=== PATIENT | male | born 1950 | race Caucasian/White ===

== ENCOUNTER → 2018-09-25 12:51 | Outpatient (CLI) | payer OTHER, SELFPAY ==
--- NOTE | 2018-09-25 | DI.MRI.S_ITS ---
PROCEDURE: MR LUMBAR SPINE WO/W CON INDICATIONS: Low back pain TECHNIQUE: Noncontrast sagittal T1 spin echo and T2 fast spin echo, sagittal STIR, axial T1 and T2 fast spin echo through the lumbar spine. In cases with scoliosis, additional coronal T2 fast spin echo may be performed. After the administration of contrast, sagittal and axial T1 spin echo with fat saturation through the lumbar spine. COMPARISON: [facility], , L-SPINE 2-3 VIEWS, 02/22/2012, 9:42. FINDINGS: Image quality: Excellent. Alignment and curvature: Mild levoconvex scoliotic curvature is noted. Marrow: Marrow is of normal overall signal. There is a stable central compression deformity seen at L4, with approximately 40% loss of height centrally. This is not significantly changed compared to 2012. There is also a mild compression deformity seen involving the superior endplate of L2, with 15% loss of height centrally. Abnormal bone marrow edema can be seen throughout this vertebral body, although most prominent superiorly. There is associated enhancement seen within this vertebral body, although most prominent superiorly, which is consistent with a healing response. This is new compared to the 2012 plain film examination. There is 3 mm posterior displacement of fracture fragments seen. No suspicious marrow enhancement. Spinal cord: Conus medullaris terminates at the L1 level. Visualized spinal cord demonstrates normal signal, without suspicious enhancement. Paraspinous soft tissues: No paravertebral masses or abnormal enhancement. T12-L1: Normal appearance. L1-L2: The disc height and disc signal are relatively well-preserved and mild to moderate disc bulge is seen. There is at least moderate bilateral neural foraminal narrowing seen at this level. Moderate central canal narrowing is seen, as on series 5. L2-L3: The disc height and disc signal are relatively well-preserved. Mild to moderate disc bulge is seen. [id number] bilateral neural foraminal narrowing is seen. Minimal central canal narrowing is seen. L3-L4: The disc height is well-preserved. Loss of disc signal is seen at this level. Moderate generalized disc bulge is seen. Mild facet joint hypertrophy is seen. There is moderate left-sided and mild to moderate right-sided neural foraminal narrowing seen. There is at least moderate central canal narrowing seen, as on series 5 image 23. L4-L5: The disc height is well-preserved. Loss of disc signal is seen at this level. Moderate disc bulge is seen, which is eccentric to the left. Moderate to prominent facet hypertrophy is seen, with associated moderate hypertrophy of the ligamentum flavum. There is moderate to severe bilateral neural foraminal narrowing seen, right worse than left. There is a degree of compression seen upon the exiting L4 nerve roots. Moderate to severe central canal narrowing is seen, as on series 5 image 27. L5-S1: The disc height is well-preserved. Loss of disc signal is seen at this level. Moderate disc bulge is seen, which is eccentric to the left. There is mild to moderate facet hypertrophy seen. There is moderate right-sided and moderate to severe left-sided neural foraminal narrowing seen. There is a degree of compression seen upon the exiting left L5 nerve root. Moderate central canal narrowing is seen. IMPRESSION: There is a subacute compression deformity seen at L2, with 3 mm of posterior displacement of fracture fragments. Stable L4 central compression deformity. Multiple levels of lumbar spine degenerative change are seen, including a degree of nerve compression upon the exiting L4 nerve roots. Compression can also be seen upon the exiting left L5 nerve root. Moderate to severe central canal narrowing at L4-L5. Dictated by: Maxi Mancuso M.D. on 09/25/2018 at 14:12 Approved by: Maxi Mancuso M.D. on 09/25/2018 at 14:20
== END ==
PROVIDERS: Visit Provider Internal Medicine
DX: M54.5 Low back pain (principal); M47.816 Spondylosis without myelopathy or radiculopathy, lumbar region; M47.817 Spondylosis without myelopathy or radiculopathy, lumbosacral region; M48.061 Spinal stenosis, lumbar region without neurogenic claudication; M48.07 Spinal stenosis, lumbosacral region
CPT/HCPCS: 72158; A9579

== ENCOUNTER → 2019-06-04 08:49 | Outpatient (CLI) | payer MEDICARE, BC, SELFPAY ==
[2019-06-04 08:59] LABS: Bacteria Urine None Seen; WBC Urine None Seen (0-5/HPF)
[2019-06-04 09:22] LABS: Add Manual Diff / Slide Review NO; Basophils Absolute Auto 100 /uL (0-100); Basophils Percent Auto 0.8 % (0-2); Eosinophils Absolute Auto 300 /uL (0-450); Eosinophils Percent Auto 4.2 % (2-4); Hematocrit 40.5 % (41-53); Hemoglobin 13.6 g/dL (13.5-17.5); Lymphocytes Absolute Auto 2400 /uL (1100-4500); Lymphocytes Percent Auto 31.9 % (25-40); Mean Corpuscular HGB Conc 33.5 % (30-36); Mean Corpuscular Hemoglobin 28.9 PG (26-34); Mean Corpuscular Volume 86.2 fL (80-100); Monocytes Absolute Auto 800 /uL (0-900); Monocytes Percent Auto 10.6 % (3-14); Neutrophils Absolute Auto 4000 /uL (1500-7000); Neutrophils Percent Auto 52.5 % (50-75); Platelet Count 254 X10^3/uL (150-400); Red Cell Distribution Width 13.8 % (11.6-14.8); White Blood Cell Count 7.7 X10^3/uL (4.5-11.0)
[2019-06-04 09:26] LABS: Appearance Urine UA CLEAR; Bilirubin Urine UA NEGATIVE (NEGATIVE); Color Urine UA YELLOW; Glucose Urine UA NEGATIVE (Negative); Ketones Urine UA NEGATIVE (NEGATIVE); Leukocyte Esterase Urine UA NEGATIVE (NEGATIVE); Nitrite Urine UA NEGATIVE (Negative); Occult Blood Urine UA TRACE-LYSED (Negative); Protein Urine UA NEGATIVE (Negative); Specific Gravity Urine UA <=1.005 (1.000-1.035); Urobilinogen Urine UA 0.2 E.U./dL (0.2); pH Urine UA 6.5 (4.5-8.0)
[2019-06-04 09:32] LABS: Hemoglobin A1C% w Est Avg Glu 6.4 % (4.0-6.0)
[2019-06-04 09:39] LABS: Alanine Aminotransferase 21 IU/L (<50); Albumin 4.7 g/dL (3.5-5.0); Albumin Globulin Ratio 1.4 (1.0-2.8); Alkaline Phosphatase 84 U/L (38-126); Aspartate Aminotransferase 23 IU/L (17-59); BUN Creatinine Ratio 16.7 (6-22); Bilirubin Total 0.5 mg/dL (0.2-1.3); Blood Urea Nitrogen 15 mg/dL (9-20); Calcium 9.8 mg/dL (8.4-10.2); Carbon Dioxide 27 mmol/L (22-32); Chloride 101 mmol/L (98-107); Cholesterol 194 mg/dL (140-199); Estimated Glomerular Filt Rate > 60.0 mL/min (>60); Globulin 3.3 g/dL (1.7-4.1); Glucose 101 mg/dL (80-110); HDL Cholesterol 52 mg/dL (40-60); HEMOLYSIS < 15 (0-50); LDL Cholesterol Calculated 120 mg/dL (<100); Potassium 4.3 mmol/L (3.4-5.1); Sodium 138 mmol/L (137-145); Triglycerides 110 mg/dL (35-150)
[2019-06-04 09:41] LABS: Culture Indicated Urine Cult Not Indicated; RBC Urine 1-5/HPF (0-5/HPF)
[2019-06-07 15:18] LABS: PSA, Total 0.5 ng/mL (< 4.1)
== END ==
PROVIDERS: PCP Internal Medicine; Visit Provider Internal Medicine
DX: E11.9 Type 2 diabetes mellitus without complications (principal); E78.5 Hyperlipidemia, unspecified; R31.9 Hematuria, unspecified; I10 Essential (primary) hypertension
CPT/HCPCS: 36415; 80053; 80061; 81001; 83036; 84153; 84154; 85025

== ENCOUNTER → 2020-04-05 10:31 | Outpatient (CLI) | payer MEDICARE, BC, SELFPAY ==
[2020-04-05 12:25] LABS: Add Manual Diff / Slide Review NO; Basophils Absolute Auto 0 /uL (0-100); Basophils Percent Auto 0.7 % (0-2); Eosinophils Absolute Auto 400 /uL (0-450); Eosinophils Percent Auto 5.4 % (2-4); Hematocrit 37.7 % (41-53); Hemoglobin 12.5 g/dL (13.5-17.5); Lymphocytes Absolute Auto 2000 /uL (1100-4500); Mean Corpuscular HGB Conc 33.1 % (30-36); Mean Corpuscular Hemoglobin 28.5 PG (26-34); Mean Corpuscular Volume 86.3 fL (80-100); Monocytes Absolute Auto 700 /uL (0-900); Monocytes Percent Auto 10.2 % (3-14); Neutrophils Absolute Auto 3800 /uL (1500-7000); Neutrophils Percent Auto 54.7 % (50-75); Platelet Count 222 X10^3/uL (150-400); Red Blood Cell Count 4.37 X10^6/uL (4.5-5.9); Red Cell Distribution Width 14.1 % (11.6-14.8); White Blood Cell Count 6.9 X10^3/uL (4.5-11.0)
[2020-04-05 12:42] LABS: Alanine Aminotransferase 20 IU/L (<50); Albumin 4.4 g/dL (3.5-5.0); Albumin Globulin Ratio 1.3 (1.0-2.8); Alkaline Phosphatase 91 U/L (38-126); Aspartate Aminotransferase 21 IU/L (17-59); BUN Creatinine Ratio 34.7 (6-22); Bilirubin Total 0.5 mg/dL (0.2-1.3); Blood Urea Nitrogen 26 mg/dL (9-20); Calcium 9.3 mg/dL (8.4-10.2); Carbon Dioxide 28 mmol/L (22-32); Chloride 104 mmol/L (98-107); Cholesterol 165 mg/dL (140-199); Estimated Glomerular Filt Rate > 60.0 mL/min (>60); Globulin 3.3 g/dL (1.7-4.1); Glucose 101 mg/dL (80-110); HDL Cholesterol 53 mg/dL (40-60); HEMOLYSIS < 15 (0-50); LDL Cholesterol Calculated 100 mg/dL (<100); Potassium 4.4 mmol/L (3.4-5.1); Sodium 137 mmol/L (137-145); Total Protein 7.7 g/dL (6.3-8.2); Triglycerides 62 mg/dL (35-150)
[2020-04-05 13:11] LABS: Prostate Specific Antigen Scrn 0.586 ng/mL (0.1-4.0)
[2020-04-05 15:34] LABS: Creatinine Urine Random 82.3 mg/dL
[2020-04-05 15:37] LABS: Microalbumi Creatinin Ratio Ur 87.4 ug/mg CR (<30); Microalbumin Urine Random 7.2 mg/dL (0-1.6)
== END ==
PROVIDERS: PCP Internal Medicine; Referring Provider Internal Medicine; Visit Provider Internal Medicine
DX: E78.2 Mixed hyperlipidemia (principal); E11.9 Type 2 diabetes mellitus without complications; I10 Essential (primary) hypertension; M15.0 Primary generalized (osteo)arthritis; Z12.5 Encounter for screening for malignant neoplasm of prostate
CPT/HCPCS: 36415; 80053; 80061; 82043; 82570; 85025; G0103

== ENCOUNTER → 2020-11-02 12:53 | Outpatient (CLI) | payer MEDICARE, OTHER, SELFPAY ==
--- NOTE | 2020-11-02 | DI.MRI.S_ITS ---
PROCEDURE: MR LUMBAR SPINE WO CON INDICATIONS: Spinal stenosis, lumbar region without neurogenic TECHNIQUE: Noncontrast sagittal T1 spin echo and T2 fast echo, coronal T2, sagittal STIR, axial T1 and T2 fast spin echo through the lumbar spine. In cases with scoliosis, additional coronal T2 fast spin echo may be performed. COMPARISON: [facility], , MR LUMBAR SPINE WO/W CON, 09/25/2018, 13:01. [facility] [place], CR, XR LUMBAR SPINE 2 OR 3 VIEWS, 10/30/2018, 15:00. FINDINGS: Image quality: Excellent. Alignment and Curvature: 5 lumbar type vertebral bodies are present by plain film. Loss of normal lumbar lordosis is present. Mild grade 1 anterolisthesis of L4 on L5. Mild grade 1 retrolisthesis of L5 on S1. Bone Marrow: Marrow is of normal overall signal. No acute vertebral body compression fractures. Moderate chronic wedging of L1. Moderate chronic wedging of L4. Moderate reactive signal within the endplates adjacent to the L1-L2 and L3-L4 intervertebral discs. Mild reactive signal within the endplates adjacent to the T10-T11 and T11-T12, T12-L1, L4-L5, and L5-S1 intervertebral discs. Spinal Cord: Conus medullaris terminates at the lower L1 level. Visualized cord demonstrates normal signal and size. Paraspinous Soft Tissues: No paravertebral masses. T12-L1: Mild disc height loss and desiccation. Mild facet and ligamentum flavum hypertrophy. No significant canal, or foraminal stenosis. No change. L1-L2: Moderate disc desiccation. Mild disc height loss and diffuse disc bulge. Mild facet and ligamentum flavum hypertrophy. Mild epidural lipomatosis. Mild retropulsion at the superior L2 level. There is increased, moderate to severe canal stenosis. There is increased, moderate right and mild left foraminal stenosis. L2-L3: Mild disc desiccation and diffuse disc bulge. Mild facet and ligamentum flavum hypertrophy. Mild epidural lipomatosis. Mild canal stenosis. Mild bilateral foraminal stenosis. No significant change. L3-L4: Moderate disc desiccation. Mild disc height loss and diffuse disc bulge. Mild facet and ligamentum flavum hypertrophy. Mild epidural lipomatosis. Moderate canal stenosis. Moderate bilateral foraminal stenosis. No significant change. L4-L5: Mild disc height loss. Moderate disc desiccation. Mild diffuse disc bulge. Moderate facet and ligamentum flavum hypertrophy. Increased, severe canal stenosis. Increased, severe left and no change in moderate to severe right foraminal stenosis. Left greater than right L4 nerve root compression. L5-S1: Mild disc height loss. Moderate disc desiccation. Mild diffuse disc bulge. Mild facet and ligamentum flavum hypertrophy. Moderate canal stenosis. Moderate right and moderate to severe left foraminal stenosis. Mild left L5 nerve root compression. No significant change. IMPRESSION: 1. Multilevel degenerative disc and facet disease, as well as ligamentum flavum hypertrophy and epidural lipomatosis. 2. Multilevel canal stenoses, worst at L4-L5, where there is increased, severe canal stenosis. There is increased, moderate to severe L1-L2 canal stenosis. 3. Multilevel foraminal stenoses, worst at L4-L5 and L5-S1 where there is associated intraforaminal nerve root compression. Recommend correlation with clinical symptoms to ascertain relevance of these findings. Dictated by: Dimitry Williamson M.D. on 11/02/2020 at 14:11 Approved by: Dimitry Williamson M.D. on 11/02/2020 at 14:16
== END ==
PROVIDERS: PCP Internal Medicine; Referring Provider Internal Medicine; Visit Provider Internal Medicine
DX: M48.061 Spinal stenosis, lumbar region without neurogenic claudication (principal); M51.36 Other intervertebral disc degeneration, lumbar region
CPT/HCPCS: 72148

== ENCOUNTER → 2022-07-06 13:26 | Outpatient (CLI) | payer MEDICARE, SELFPAY ==
[2022-07-06 19:22] LABS: HEMOLYSIS < 15 (0-50); Iron 19 ug/dL (49-181)
[2022-07-06 19:24] LABS: Blood Urea Nitrogen 18 mg/dL (9-20); Calcium 9.3 mg/dL (8.4-10.2); Carbon Dioxide 22 mmol/L (22-32); Chloride 102 mmol/L (98-107); Cholesterol 165 mg/dL (140-199); Estimated Glomerular Filt Rate > 60 mL/min (>60); Glucose 50 mg/dL (80-110); HDL Cholesterol 45 mg/dL (40-60); HEMOLYSIS < 15 (0-50); LDL Cholesterol Calculated 102 mg/dL (<100); Potassium 4.6 mmol/L (3.4-5.1); Sodium 138 mmol/L (137-145); Triglycerides 92 mg/dL (35-150)
[2022-07-06 19:26] LABS: Add Manual Diff / Slide Review NO; Basophils Absolute Auto 0 /uL (0-100); Basophils Percent Auto 0.2 % (0-2); Eosinophils Absolute Auto 400 /uL (0-450); Eosinophils Percent Auto 5.1 % (2-4); Hemoglobin 9.5 g/dL (13.5-17.5); Lymphocytes Absolute Auto 2100 /uL (1100-4500); Lymphocytes Percent Auto 28.4 % (25-40); Mean Corpuscular HGB Conc 31.7 % (30-36); Mean Corpuscular Hemoglobin 22.7 PG (26-34); Mean Corpuscular Volume 71.3 fL (80-100); Monocytes Absolute Auto 800 /uL (0-900); Neutrophils Absolute Auto 4000 /uL (1500-7000); Neutrophils Percent Auto 55.3 % (50-75); Platelet Count 246 X10^3/uL (150-400); Red Blood Cell Count 4.21 X10^6/uL (4.5-5.9); Red Cell Distribution Width 18.6 % (11.6-14.8); White Blood Cell Count 7.2 X10^3/uL (4.5-11.0)
[2022-07-06 19:33] LABS: Hemoglobin A1C% w Est Avg Glu 6.5 % (4.0-6.0)
[2022-07-06 19:37] LABS: Percent Iron Saturation 5 % (20-50); Total Iron Binding Capacity 386 ug/dL (261-462); Transferrin 276 mg/dL (206-381)
[2022-07-06 19:56] LABS: Prostate Specific Antigen Scrn 0.698 ng/mL (0.1-4.0)
[2022-07-06 20:17] LABS: Vitamin B12 358 pg/mL (239-931)
== END ==
PROVIDERS: PCP Family Medicine; Visit Provider Family Medicine
DX: E11.9 Type 2 diabetes mellitus without complications (principal); Z12.5 Encounter for screening for malignant neoplasm of prostate; D64.9 Anemia, unspecified; E78.2 Mixed hyperlipidemia; I10 Essential (primary) hypertension; N52.9 Male erectile dysfunction, unspecified
CPT/HCPCS: 80048; 80061; 82607; 83036; 83540; 83550; 85025; G0103

== ENCOUNTER → 2022-07-17 09:02 | Outpatient (CLI) | payer MEDICARE, SELFPAY ==
[2022-07-19 11:24] LABS: Fecal Immunochemical Test POSITIVE
== END ==
PROVIDERS: PCP Family Medicine; Visit Provider Family Medicine
DX: D64.9 Anemia, unspecified (principal)
CPT/HCPCS: 82274

== ENCOUNTER 2022-08-03 10:33 | Day surgery (SDC) | payer MEDICARE, OTHER, SELFPAY ==
[2022-08-03 10:51] VITALS: BP 173/79; PULSE 85; RESP 18; TEMP 36.5; O2SAT 98; BMI 33.4
[2022-08-03] MEDS: LACTATED RINGERS 1,000 ML 42 ML IV (11:01)
--- NOTE | 2022-08-03 11:14 | PM.HP.1 ---
History of Present Illness History of Present Illness Date Patient Seen: 08/03/22 Time Patient Seen: 11:14 Chief complaint: Colonoscopy Narrative: Blanquita is a 71-year-old man who is here for colonoscopy because of a positive fit test. He is had a colonoscopy but he is not sure when it was, most likely over 10 years ago. No family history of colon cancer. Patient History Medical History (Updated 07/24/22 @ 07:30 by Renaldo Vergara MD) Chicken pox Chronic back pain Fracture Mumps Family & Social History Family History (Updated 07/16/22 @ 20:22 by Lydia Alonso) Brother Age: 76 High cholesterol Brother Age: 73 Mental health problem Father Heart disease Family/Other Overdose Social History: household members spouse Tobacco & Substance use: Smoking Status Former smoker alcohol intake never alcohol intake frequency holiday/special occasion Substance Use Type does not use Meds Home Medications and Allergies Home Medications Medication Instructions Recorded Confirmed Type metoprolol succinate 50 mg 50 mg PO QDAY ##90 02/15/16 08/03/22 Rx tablet,extended release 24 hr simvastatin 40 mg tablet 40 mg PO EVERY EVENING #90 tabs 02/15/16 08/03/22 Rx celecoxib 200 mg capsule 200 mg PO DAILY 07/05/22 08/03/22 History metformin 1,000 mg tablet 1,000 mg PO BID 07/05/22 08/03/22 History telmisartan 80 mg tablet 80 mg PO DAILY 07/05/22 08/03/22 History zolpidem 10 mg tablet 10 mg PO HSP PRN insomnia #30 tabs 07/06/22 08/03/22 Rx glipizide 5 mg tablet 5 mg PO DAILY 07/12/22 08/03/22 History ezetimibe 10 mg tablet (Zetia) 10 mg PO DAILY #90 tabs 07/24/22 08/03/22 Rx Allergies Allergy/AdvReac Type Severity Reaction Status Date / Time No Known Drug Allergies Allergy Verified 07/05/22 08:41 Exam Vital Signs (past 8 hours): - 08/03/22 10:51 Temperature 97.7 F Pulse Rate 85 Respiratory Rate 18 Blood Pressure 173/79 H Pulse Oximetry 98 Const General: No acute distress Assessment & Plan Assessment and plan (1) Positive FIT (fecal immunochemical test): Status: Acute Plan Proceed with colonoscopy for positive fit test Time Spent With Patient Critical Care time: I spent a total of [] minutes of critical care time on this patient's care today; this time is exclusive of procedural time.
--- NOTE | 2022-08-03 11:37 | PM.OP.COLON ---
Operative Date/Time/Diagnoses Date of procedure: 08/03/22 Time of procedure: 11:37 Pre-op diagnosis: Positive fit test Post-op diagnosis: same Procedure & Clinicians Study performed: Colonoscopy Same procedure as scheduled: Yes Surgeon: Jesus Alatorre Procedure Notes Procedure in detail: Surgeon: Jesus Alatorre MD Anesthesia: Crala Leong CRNA Procedure: The patient was brought to the endoscopy suite, placed in left lateral decubitus position. The patient was connected to monitoring devices. A time-out was performed. Sedation was administered. Once the patient was adequately sedated, a digital rectal exam was performed and was normal. The scope was then inserted and advanced to the cecum where the appendiceal orifice was identified and photographed. The scope was then slowly withdrawn over greater than 6 minutes. The mucosa was thoroughly inspected. No polyps were identified. There was sigmoid diverticulosis. The scope was retroflexed in the rectum. There were moderate internal hemorrhoids. The scope was straightened and removed. The patient was awakened and brought to recovery. Scope withdrawal time: 7 minutes Sedation time: 12 minutes EBL: 0 Findings: Sigmoid diverticulosis and internal hemorrhoids Post-procedure Disposition: PACU
[2022-08-03 11:39] VITALS: BP 102/72; PULSE 82; RESP 18; TEMP 36.5; O2SAT 91
[2022-08-03 11:45] VITALS: BP 103/54; PULSE 78; RESP 16; O2SAT 96
[2022-08-03 11:54] VITALS: BP 97/66; PULSE 75; RESP 18; O2SAT 98
== END 2022-08-03 12:10 | disposition home or self-care (01) ==
PROVIDERS: PCP Family Medicine; Referring Provider Surgery; Visit Provider Surgery
PROC: 0DJD8ZZ Inspection of Lower Intestinal Tract, Via Natural or Artificial Opening Endoscopic (ICD-10-PCS; CPT 45378; principal; 2022-08-03 11:45)
DX: Z12.11 Encounter for screening for malignant neoplasm of colon (principal); R19.5 Other fecal abnormalities; K57.30 Diverticulosis of large intestine without perforation or abscess without bleeding; K64.8 Other hemorrhoids
CPT/HCPCS: G0121; J2704

== ENCOUNTER → 2023-03-13 10:19 | Outpatient (CLI) | payer MEDICARE, OTHER, SELFPAY ==
--- NOTE | 2023-03-13 10:20 | DI.RAD.S_ITS ---
PROCEDURE: XR CHEST 2V INDICATIONS: Cough x 4 weeks TECHNIQUE: 2 views of the chest were acquired. COMPARISON: None. FINDINGS: Surgical changes and devices: None. Lungs and pleura: Lungs are clear. No pleural effusions or pneumothorax. Mediastinum: Mediastinal contours are normal. Heart size is normal. Large hiatal hernia. Bones and chest wall: No suspicious bony abnormalities. Soft tissues appear unremarkable. IMPRESSION: Large hiatal hernia. No evidence acute pulmonary process. Dictated by: Jalen Mendoza M.D. on 03/13/2023 at 12:40 Approved by: Jalen Mendoza M.D. on 03/13/2023 at 12:41
== END ==
PROVIDERS: PCP Family Medicine; Referring Provider Physician Assistant; Visit Provider Physician Assistant
DX: R05.9 Cough, unspecified (principal); K44.9 Diaphragmatic hernia without obstruction or gangrene
CPT/HCPCS: 71046

== ENCOUNTER → 2023-06-11 09:08 | Outpatient (CLI) | payer MEDICARE, OTHER, SELFPAY ==
[2023-06-11 19:16] LABS: Add Manual Diff / Slide Review NO; Basophils Absolute Auto 0 /uL (0-100); Basophils Percent Auto 0.6 % (0-2); Eosinophils Absolute Auto 400 /uL (0-450); Eosinophils Percent Auto 5.6 % (2-4); Hematocrit 35.6 % (41-53); Hemoglobin 11.8 g/dL (13.5-17.5); Lymphocytes Absolute Auto 1900 /uL (1100-4500); Lymphocytes Percent Auto 25.6 % (25-40); Mean Corpuscular Hemoglobin 27.6 PG (26-34); Mean Corpuscular Volume 83.4 fL (80-100); Monocytes Absolute Auto 900 /uL (0-900); Monocytes Percent Auto 12.1 % (3-14); Neutrophils Absolute Auto 4200 /uL (1500-7000); Neutrophils Percent Auto 56.1 % (50-75); Platelet Count 243 X10^3/uL (150-400); Red Blood Cell Count 4.27 X10^6/uL (4.5-5.9); Red Cell Distribution Width 14.3 % (11.6-14.8); White Blood Cell Count 7.5 X10^3/uL (4.5-11.0)
[2023-06-11 19:17] LABS: HEMOLYSIS < 15 (0-50); Iron 53 ug/dL (49-181)
[2023-06-11 19:18] LABS: Reticulocyte Count, Percent 1.9 % (0.9-2.6)
[2023-06-11 19:21] LABS: BUN Creatinine Ratio 19.5 (6-22); Blood Urea Nitrogen 17 mg/dL (9-20); Calcium 9.5 mg/dL (8.4-10.2); Carbon Dioxide 25 mmol/L (22-32); Chloride 103 mmol/L (98-107); Cholesterol 136 mg/dL (140-199); Estimated Glomerular Filt Rate > 60 mL/min (>60); Glucose 89 mg/dL (80-110); HDL Cholesterol 42 mg/dL (40-60); HEMOLYSIS < 15 (0-50); LDL Cholesterol Calculated 80 mg/dL (<100); Potassium 4.3 mmol/L (3.4-5.1); Sodium 136 mmol/L (137-145); Triglycerides 72 mg/dL (35-150)
[2023-06-11 19:30] LABS: Percent Iron Saturation 16 % (20-50); Total Iron Binding Capacity 329 ug/dL (261-462); Transferrin 267 mg/dL (206-381)
[2023-06-11 20:04] LABS: Creatinine Urine Random 149.3 mg/dL
[2023-06-11 20:05] LABS: Hemoglobin A1C% w Est Avg Glu 7.1 % (4.0-6.0)
[2023-06-11 20:08] LABS: Microalbumi Creatinin Ratio Ur 35.4 ug/mg CR (<30); Microalbumin Urine Random 5.3 mg/dL (0-1.6)
== END ==
PROVIDERS: PCP Family Medicine; Visit Provider Family Medicine
DX: F51.02 Adjustment insomnia (principal); E11.9 Type 2 diabetes mellitus without complications; K59.00 Constipation, unspecified; R19.5 Other fecal abnormalities; D64.9 Anemia, unspecified; I10 Essential (primary) hypertension; E78.2 Mixed hyperlipidemia
CPT/HCPCS: 80048; 80061; 82043; 82570; 83036; 83540; 83550; 85025; 85045

== ENCOUNTER → 2023-07-10 12:03 | Outpatient (CLI) | payer MEDICARE, OTHER, SELFPAY ==
--- NOTE | 2023-07-10 13:03 | DI.CT.S_ITS ---
PROCEDURE: CT ABDOMEN PELVIS W CON INDICATIONS: abdominal pain, positive FIT TECHNIQUE: After the administration of intravenous contrast, axial sections acquired from the lung bases to the pubic symphysis. Coronal and sagittal reformats were performed. For radiation dose reduction, the following was used: automated exposure control, adjustment of mA and/or kV according to patient size. COMPARISON: None. FINDINGS: Image quality: Diagnostic. Lower Chest: No significant findings. ABDOMEN: Liver: No solid mass. Diffuse fatty infiltration of the liver. Gallbladder: Gallbladder contains calcified stones. Biliary ducts: No biliary dilation. Pancreas: No ductal dilation. Spleen: Size is within normal limits. Adrenal Glands: No adrenal nodules. Kidneys and Ureters: No hydronephrosis. No solid mass. No complex renal cystic lesion which requires follow up. Stomach and Bowel: Large hiatal hernia with organoaxial volvulus of the herniated stomach Duodenal diverticulum. Normal colonic caliber, without significant wall thickening. Colonic diverticula without evidence of diverticulitis. No evidence of appendicitis Peritoneum: No abnormal intraperitoneal fluid. No free air. Ventral Wall: No significant ventral hernia. Abdominal Nodes: No retroperitoneal or mesenteric adenopathy by size criteria. Vessels: Aorta and inferior vena cava are normal in size. PELVIS: Pelvic Organs: Unremarkable. Bladder: No bladder wall thickening, accounting for underdistention. Pelvic Nodes: No enlarged lymph nodes. Miscellaneous: No inguinal hernias are seen. Bones: No aggressive osseous abnormality. Chronic appearing L2 and L4 compression fractures Spine degenerative disc disease and facet arthropathy. IMPRESSION: Large hiatal hernia with organoaxial volvulus of the herniated stomach. Colonic diverticulosis without evidence of diverticulitis. Hepatic steatosis. Cholelithiasis. Dictated by: Ragini Tompkins MD, PhD on 07/10/2023 at 13:22 Approved by: Ragini Tompkins MD, PhD on 07/10/2023 at 13:29
== END ==
LOC: CT 12:04
PROVIDERS: PCP Family Medicine; Referring Provider Family Medicine; Visit Provider Family Medicine
DX: R19.5 Other fecal abnormalities (principal); K44.9 Diaphragmatic hernia without obstruction or gangrene; K31.89 Other diseases of stomach and duodenum; K57.90 Diverticulosis of intestine, part unspecified, without perforation or abscess without bleeding; K80.20 Calculus of gallbladder without cholecystitis without obstruction; K76.0 Fatty (change of) liver, not elsewhere classified
CPT/HCPCS: 74177

== ENCOUNTER → 2023-09-28 13:39 | Outpatient (CLI) | payer MEDICARE, OTHER, SELFPAY | PROVIDERS: PCP Family Medicine; Visit Provider Family Medicine | DX: R31.9 Hematuria, unspecified (principal); N39.0 Urinary tract infection, site not specified | CPT/HCPCS: 87086 ==

== ENCOUNTER → 2023-12-24 12:57 | Outpatient (CLI) | payer MEDICARE, OTHER, SELFPAY ==
[2023-12-24 20:30] LABS: Add Manual Diff / Slide Review NO; Basophils Absolute Auto 0 /uL (0-100); Basophils Percent Auto 0.3 % (0-2); Eosinophils Absolute Auto 300 /uL (0-450); Eosinophils Percent Auto 2.8 % (2-4); Hematocrit 33.9 % (41-53); Hemoglobin 11.4 g/dL (13.5-17.5); Lymphocytes Absolute Auto 1900 /uL (1100-4500); Lymphocytes Percent Auto 20.2 % (25-40); Mean Corpuscular HGB Conc 33.6 % (30-36); Mean Corpuscular Hemoglobin 28.1 PG (26-34); Mean Corpuscular Volume 83.5 fL (80-100); Monocytes Absolute Auto 1000 /uL (0-900); Monocytes Percent Auto 10.5 % (3-14); Neutrophils Absolute Auto 6200 /uL (1500-7000); Neutrophils Percent Auto 66.2 % (50-75); Platelet Count 235 X10^3/uL (150-400); Red Blood Cell Count 4.06 X10^6/uL (4.5-5.9); Red Cell Distribution Width 15.4 % (11.6-14.8); White Blood Cell Count 9.4 X10^3/uL (4.5-11.0)
[2023-12-24 20:41] LABS: Alanine Aminotransferase 20 IU/L (<50); Albumin 3.7 g/dL (3.5-5.0); Albumin Globulin Ratio 1.2 (1.0-2.8); Alkaline Phosphatase 104 U/L (38-126); Aspartate Aminotransferase 20 IU/L (17-59); BUN Creatinine Ratio 17.8 (6-22); Bilirubin Total 0.5 mg/dL (0.2-1.3); Blood Urea Nitrogen 16 mg/dL (9-20); Carbon Dioxide 24 mmol/L (22-32); Chloride 106 mmol/L (98-107); Estimated Glomerular Filt Rate > 60 mL/min (>60); Glucose 136 mg/dL (80-110); HEMOLYSIS < 15 (0-50); Potassium 4.7 mmol/L (3.4-5.1); Sodium 136 mmol/L (137-145); Total Protein 6.7 g/dL (6.3-8.2)
== END ==
PROVIDERS: PCP Family Medicine; Referring Provider Family Medicine; Visit Provider Family Medicine
DX: D64.9 Anemia, unspecified (principal); R10.9 Unspecified abdominal pain; R19.5 Other fecal abnormalities
CPT/HCPCS: 80053; 85025

== ENCOUNTER → 2023-12-25 07:18 | Outpatient (CLI) | payer MEDICARE, OTHER, SELFPAY ==
[2023-12-25 13:35] LABS: Cholesterol 104 mg/dL (140-199); HDL Cholesterol 33 mg/dL (40-60); LDL Cholesterol Calculated 51 mg/dL (<100); Triglycerides 100 mg/dL (35-150)
[2023-12-25 13:52] LABS: Hemoglobin A1C% w Est Avg Glu 6.6 % (4.0-6.0)
== END ==
PROVIDERS: PCP Family Medicine; Visit Provider Family Medicine
DX: E11.9 Type 2 diabetes mellitus without complications (principal); E78.2 Mixed hyperlipidemia
CPT/HCPCS: 80061; 83036

== ENCOUNTER → 2024-01-03 10:10 | Outpatient (CLI) | payer MEDICARE, OTHER, SELFPAY | PROVIDERS: PCP Family Medicine; Visit Provider Family Medicine | DX: R19.7 Diarrhea, unspecified (principal); D64.9 Anemia, unspecified | CPT/HCPCS: 87045; 87177 ==

== ENCOUNTER → 2024-04-07 09:52 | Outpatient (CLI) | payer MEDICARE, OTHER, SELFPAY ==
[2024-04-07 19:14] LABS: HEMOLYSIS < 15 (0-50); Iron 72 ug/dL (49-181)
[2024-04-07 19:16] LABS: BUN Creatinine Ratio 21.9 (6-22); Blood Urea Nitrogen 21 mg/dL (9-20); Calcium 8.9 mg/dL (8.4-10.2); Carbon Dioxide 24 mmol/L (22-32); Chloride 104 mmol/L (98-107); Cholesterol 119 mg/dL (140-199); Estimated Glomerular Filt Rate > 60 mL/min (>60); Glucose 73 mg/dL (80-110); HDL Cholesterol 47 mg/dL (40-60); HEMOLYSIS < 15 (0-50); LDL Cholesterol Calculated 51 mg/dL (<100); Potassium 4.1 mmol/L (3.4-5.1); Sodium 136 mmol/L (137-145); Triglycerides 105 mg/dL (35-150)
[2024-04-07 19:23] LABS: Hemoglobin A1C% w Est Avg Glu 7.6 % (4.0-6.0)
[2024-04-07 19:32] LABS: Percent Iron Saturation 18 % (20-50); Total Iron Binding Capacity 411 ug/dL (261-462); Transferrin 324 mg/dL (206-381)
[2024-04-07 20:17] LABS: Vitamin B12 858 pg/mL (239-931)
== END ==
PROVIDERS: PCP Family Medicine; Visit Provider Family Medicine
DX: E11.9 Type 2 diabetes mellitus without complications (principal); R31.9 Hematuria, unspecified; D64.9 Anemia, unspecified; R19.7 Diarrhea, unspecified; R19.5 Other fecal abnormalities; I10 Essential (primary) hypertension; E78.2 Mixed hyperlipidemia; K76.0 Fatty (change of) liver, not elsewhere classified
CPT/HCPCS: 80048; 80061; 82607; 83036; 83540; 83550; 85045

== ENCOUNTER → 2024-05-07 10:50 | Outpatient (CLI) | payer MEDICARE, OTHER, SELFPAY ==
--- NOTE | 2024-05-07 10:52 | DI.MRI.S_ITS ---
PROCEDURE: MR LUMBAR SPINE WO CON INDICATIONS: SPINAL STENOSIS, LUMBAR REGION TECHNIQUE: Noncontrast sagittal T1 spin echo and T2 fast echo, sagittal STIR, and T2 fast spin echo through the lumbar spine. In cases with scoliosis, additional coronal T2 fast spin echo may be performed. COMPARISON: [facility], CT, CT IVP, 11/02/2023, 15:05. [facility], MR, MR LUMBAR SPINE WO CON, 11/02/2020, 13:31. [facility], CR, XR LUMBAR SPINE WITH OBLIQUES PLUS FLEXION EXTENSION, 04/28/2024, 11:52. FINDINGS: Image quality: Excellent. Alignment and Curvature: Mild levoconvex scoliotic curvature is noted. Minimal retrolisthesis can be seen at the L5-S1 level. Bone Marrow: Marrow is of normal overall signal. No acute vertebral body compression fractures. Stable prior fractures of L2 and L4 can be seen, with 35% loss of height centrally at L2 and 45% loss of height centrally at L4. Scattered foci are seen, which are hyperintense on T1-weighted and T2-weighted imaging, which are most consistent with benign vertebral body hemangiomas. Spinal Cord: Conus medullaris terminates at the L1 level. Visualized cord demonstrates normal signal and size. Paraspinous Soft Tissues: No paravertebral masses. T12-L1: Normal appearance. L1-L2: The disc height and disk signal are relatively well-preserved. Mild to moderate disc bulge is seen, with a central disc osteophyte protrusion. Mild facet joint hypertrophy is seen. There is at least moderate right-sided and moderate left-sided neural foraminal narrowing. At least moderate central canal narrowing is seen at this level. These imaging findings have progressed compared to the prior study. L2-L3: The disc height and disk signal are relatively well-preserved. Mild generalized disc bulge is seen. Mild facet joint hypertrophy is seen. Mild bilateral neural foraminal narrowing is seen. Mild central canal narrowing is seen. No significant change from the prior. L3-L4: The disc height is well-preserved. Loss of disc signal is seen at this level. Moderate generalized disc bulge is seen. There is a superimposed central disc protrusion. Moderate facet joint hypertrophy is seen. Associated hypertrophy of the ligamentum flavum can be seen. Moderate bilateral neural foraminal narrowing is seen. Moderate central canal narrowing is seen. When comparison is made with the prior images, these findings are similar. L4-L5: The disc height is well-preserved. Loss of disc signal is seen at this level. Moderate generalized disc bulge is seen. There is a superimposed central disc protrusion. Moderate facet joint hypertrophy is seen. Associated hypertrophy of the ligamentum flavum can be seen. There is moderate to severe left-sided and at least moderate right-sided neural foraminal narrowing. There is a degree of compression seen upon the exiting nerve roots. At least moderate central canal narrowing is seen at this level. These imaging findings have mildly progressed compared to the prior study. L5-S1: Mild loss of disc height is seen. Loss of disc signal is seen. Moderate disc bulge is seen, which is eccentric to the left. Moderate facet joint hypertrophy is seen. There is moderate right-sided and moderate to severe left-sided neural foraminal narrowing. There is a degree of compression upon the exiting left L5 nerve root. Moderate central canal narrowing is seen. There is slight progression compared to the prior. IMPRESSION: Multiple levels of lumbar spine degenerative change can be seen, which have progressed at a few levels compared to the prior 2020 examination. Stable prior central compression deformities seen at L2 and L4. Dictated by: Maxi Mancuso M.D. on 05/07/2024 at 12:23 Approved by: Maxi Mancuso M.D. on 05/07/2024 at 12:28
== END ==
PROVIDERS: PCP Family Medicine; Referring Provider Physical Medicine & Rehabilitation Pain Medicine; Visit Provider Physical Medicine & Rehabilitation Pain Medicine
DX: M48.061 Spinal stenosis, lumbar region without neurogenic claudication (principal); M47.816 Spondylosis without myelopathy or radiculopathy, lumbar region; M47.817 Spondylosis without myelopathy or radiculopathy, lumbosacral region; M48.56XA Collapsed vertebra, not elsewhere classified, lumbar region, initial encounter for fracture
CPT/HCPCS: 72148

== ENCOUNTER → 2024-09-01 13:25 | Outpatient (CLI) | payer MEDICARE, OTHER, SELFPAY ==
[2024-09-01 18:47] LABS: Add Manual Diff / Slide Review NO; Basophils Absolute Auto 100 /uL (0-100); Basophils Percent Auto 0.7 % (0-2); Eosinophils Absolute Auto 400 /uL (0-450); Eosinophils Percent Auto 4.2 % (2-4); Hematocrit 34.9 % (41-53); Hemoglobin 11.7 g/dL (13.5-17.5); Lymphocytes Absolute Auto 2000 /uL (1100-4500); Lymphocytes Percent Auto 21.3 % (25-40); Mean Corpuscular HGB Conc 33.4 % (30-36); Mean Corpuscular Hemoglobin 28.9 PG (26-34); Mean Corpuscular Volume 86.5 fL (80-100); Monocytes Absolute Auto 1000 /uL (0-900); Monocytes Percent Auto 10.4 % (3-14); Neutrophils Absolute Auto 5900 /uL (1500-7000); Neutrophils Percent Auto 63.4 % (50-75); Platelet Count 188 X10^3/uL (150-400); Red Blood Cell Count 4.03 X10^6/uL (4.5-5.9); Red Cell Distribution Width 14.4 % (11.6-14.8); White Blood Cell Count 9.3 X10^3/uL (4.5-11.0)
[2024-09-01 18:57] LABS: BUN Creatinine Ratio 22.3 (6-22); Blood Urea Nitrogen 21 mg/dL (9-20); Calcium 8.9 mg/dL (8.4-10.2); Carbon Dioxide 27 mmol/L (22-32); Chloride 102 mmol/L (98-107); Estimated Glomerular Filt Rate > 60 mL/min (>60); Glucose 134 mg/dL (80-110); HEMOLYSIS 19 (0-50); Potassium 4.8 mmol/L (3.4-5.1); Sodium 137 mmol/L (137-145)
[2024-09-01 19:15] LABS: Hemoglobin A1C% w Est Avg Glu 6.2 % (4.0-6.0)
[2024-09-01 22:43] LABS: Creatinine Urine Random 91.58 mg/dL
[2024-09-01 22:48] LABS: Microalbumin Urine Random 10.7 mg/dL (0-1.6)
== END ==
PROVIDERS: PCP Family Medicine; Visit Provider Family Medicine
DX: D64.9 Anemia, unspecified (principal); E11.9 Type 2 diabetes mellitus without complications; I10 Essential (primary) hypertension; R19.5 Other fecal abnormalities
CPT/HCPCS: 80048; 82043; 82570; 83036; 85025

== ENCOUNTER → 2024-09-09 08:09 | Outpatient (CLI) | payer MEDICARE, OTHER, SELFPAY ==
[2024-09-09 19:00] LABS: Add Manual Diff / Slide Review NO; Basophils Absolute Auto 0 /uL (0-100); Basophils Percent Auto 0.6 % (0-2); Eosinophils Absolute Auto 300 /uL (0-450); Eosinophils Percent Auto 3.9 % (2-4); Hematocrit 36.4 % (41-53); Lymphocytes Absolute Auto 2100 /uL (1100-4500); Mean Corpuscular HGB Conc 33.1 % (30-36); Mean Corpuscular Hemoglobin 28.5 PG (26-34); Monocytes Absolute Auto 900 /uL (0-900); Monocytes Percent Auto 10.1 % (3-14); Neutrophils Absolute Auto 5200 /uL (1500-7000); Neutrophils Percent Auto 60.4 % (50-75); Platelet Count 206 X10^3/uL (150-400); Red Blood Cell Count 4.23 X10^6/uL (4.5-5.9); Red Cell Distribution Width 14.8 % (11.6-14.8); White Blood Cell Count 8.6 X10^3/uL (4.5-11.0)
[2024-09-09 19:06] LABS: Hemoglobin A1C% w Est Avg Glu 6.1 % (4.0-6.0)
[2024-09-09 19:15] LABS: Blood Urea Nitrogen 27 mg/dL (9-20); Calcium 9.2 mg/dL (8.4-10.2); Carbon Dioxide 27 mmol/L (22-32); Chloride 103 mmol/L (98-107); Cholesterol 107 mg/dL (140-199); Estimated Glomerular Filt Rate > 60 mL/min (>60); Glucose 66 mg/dL (80-110); HDL Cholesterol 38 mg/dL (40-60); HEMOLYSIS < 15 (0-50); LDL Cholesterol Calculated 56 mg/dL (<100); Potassium 4.3 mmol/L (3.4-5.1); Sodium 140 mmol/L (137-145); Triglycerides 66 mg/dL (35-150)
[2024-09-09 19:53] LABS: Creatinine Urine Random 155.99 mg/dL
== END ==
PROVIDERS: PCP Family Medicine; Visit Provider Family Medicine
DX: D64.9 Anemia, unspecified (principal); E11.9 Type 2 diabetes mellitus without complications; I10 Essential (primary) hypertension; K76.0 Fatty (change of) liver, not elsewhere classified; E78.2 Mixed hyperlipidemia; F51.02 Adjustment insomnia
CPT/HCPCS: 80048; 80061; 82043; 82570; 83036; 85025

== ENCOUNTER → 2024-09-29 13:15 | Outpatient (CLI) | payer MEDICARE, OTHER, SELFPAY ==
[2024-09-29 19:34] LABS: Add Manual Diff / Slide Review NO; Basophils Absolute Auto 100 /uL (0-100); Basophils Percent Auto 0.6 % (0-2); Eosinophils Absolute Auto 400 /uL (0-450); Hematocrit 38.1 % (41-53); Hemoglobin 12.9 g/dL (13.5-17.5); Lymphocytes Absolute Auto 2300 /uL (1100-4500); Lymphocytes Percent Auto 21.9 % (25-40); Mean Corpuscular HGB Conc 33.9 % (30-36); Mean Corpuscular Hemoglobin 29.5 PG (26-34); Monocytes Absolute Auto 1000 /uL (0-900); Monocytes Percent Auto 9.5 % (3-14); Neutrophils Absolute Auto 6700 /uL (1500-7000); Platelet Count 215 X10^3/uL (150-400); Red Blood Cell Count 4.38 X10^6/uL (4.5-5.9); Red Cell Distribution Width 15.2 % (11.6-14.8); White Blood Cell Count 10.5 X10^3/uL (4.5-11.0)
[2024-09-29 19:40] LABS: BUN Creatinine Ratio 23.3 (6-22); Blood Urea Nitrogen 24 mg/dL (9-20); Calcium 9.1 mg/dL (8.4-10.2); Carbon Dioxide 25 mmol/L (22-32); Chloride 101 mmol/L (98-107); Estimated Glomerular Filt Rate > 60 mL/min (>60); Glucose 124 mg/dL (70-99); HEMOLYSIS < 15 (0-50); Potassium 4.2 mmol/L (3.4-5.1); Sodium 139 mmol/L (137-145)
[2024-09-29 19:52] LABS: NT-proBNP (BNP-Adult 18+) 64 pg/mL (<125); Troponin I < 0.012 ng/mL (0.01-0.034)
[2024-09-29 20:10] LABS: TSH w/ Reflex to FT4 0.96 uIU/mL (0.47-4.68)
== END ==
PROVIDERS: PCP Family Medicine; Visit Provider Family Medicine
DX: I48.91 Unspecified atrial fibrillation (principal); R31.9 Hematuria, unspecified; R06.02 Shortness of breath; E11.9 Type 2 diabetes mellitus without complications; I10 Essential (primary) hypertension; E78.2 Mixed hyperlipidemia; Z79.01 Long term (current) use of anticoagulants
CPT/HCPCS: 80048; 81002; 83880; 84443; 84484; 85025

== ENCOUNTER → 2024-10-16 13:31 | Outpatient (CLI) | payer MEDICARE, OTHER, SELFPAY ==
--- NOTE | 2024-10-16 13:33 | DI.ECHO.S_ITS ---
[facility]---------+ [facility] : : [id number] : : [place] : : [id number] : : Phone: [phone] Echocardiogram Report + + :Name: REANNA LEMUS Study Date: 10/16/2024 Height: 67 in : :[facility] ReadingLocation: Weight: 200 lb : : Gender: Male BSA: 2.0 m2 : :: 1950 Age: 73 yrs BP: 136/65 mmHg: :Reason For Study: ATRIAL FIBRILLATION, HYPERTENSION : :Ordering Physician: : :ROSA BREEN Performed By: Deonna Layne : :Referring: ROSA BREEN : + + Interpretation Summary 1) Normal left ventricular thickness, size, wall motion, and systolic function (EF 60-65%). 2) Normal right ventricular size and function. 3) No significant valvular abnormalities. 4) No prior Echo available for comparison. Procedure: A two-dimensional transthoracic echocardiogram with color flow and Doppler was performed. The study quality was technically adequate. There is no prior echocardiogram noted for this patient. The patient was in sinus rhythm with heart rates between 78-91 bpm during the exam. Left Ventricle: The left ventricular cavity is small. There is normal left ventricular wall thickness. The ejection fraction is estimated to be 60-65%. Left ventricular systolic function appears normal without focal wall motion abnormalities. Diastolic parameters suggest a relaxation abnormality of the left ventricle, consistent with probable normal filling pressures. Right Ventricle: The right ventricle is normal size. The right ventricular systolic function is normal. Atria: The left atrial size is normal. Right atrial size is normal. There is no Doppler evidence for an interatrial shunt. Mitral Valve: The mitral valve leaflets appear mildly thickened, but open well. There is no mitral regurgitation noted. Aortic Valve: The aortic valve is not well visualized. The aortic valve opens well. There is no aortic valve stenosis. No aortic regurgitation is present. Tricuspid Valve: The tricuspid valve leaflets are thin and pliable. No tricuspid regurgitation. Pulmonary artery pressures cannot be estimated because of the lack of a measurable TR jet velocity. Pulmonic Valve: The pulmonic valve leaflets are thin and pliable; valve motion is normal. There is no pulmonic valvular regurgitation. Great Vessels: The aortic root is normal size. The dimensions of the ascending aorta are normal. The inferior vena cava was not well visualized. Pericardium/ Pleura There is a trivial pericardial effusion noted. There is no pleural effusion. MMode/2D Measurements & Calculations LVIDd: 3.8 cm LVOT diam: 2.0 cm LVIDs: 2.5 cm Ao root diam: 3.8 cm FS: 34.5 % asc Aorta Diam: 3.3 cm IVSd: 0.92 cm Ao Arch Diam (Prox Trans): 3.0 cm LVPWd: 0.86 cm LV hopkins. diameter/BSA (cm/m^2): 1.9 LV sys. diameter/BSA (cm/m^2): 1.2 LA A2 area: 26.0 cm2 RA long axis: 5.4 cm LA A4 area: 14.4 cm2 RA area: 13.7 cm2 LA length (vol): 5.7 cm RA vol: 29.3 ml LA vol: 56.1 ml RA : 14.5 ml/m2 LA vol index: 27.7 ml/m2 RVD1 (basal): 3.3 cm RVD2 (mid): 2.6 cm TAPSE: 2.3 cm Doppler Measurements & Calculations Ao V2 max: 140.7 cm/sec LVOT Max Benjamin: 108.2 cm/sec Ao V2 mean: 101.2 cm/sec LV V1 max P.7 mmHg Ao max P.0 mmHg LV V1 VTI: 19.6 cm Ao mean P.5 mmHg RICCO(I,D): 2.5 cm2 Ao V2 VTI: 25.4 cm RICCO(V,D): 2.5 cm2 sev ratio: 0.77 RICCO indexed to BSA (cm^2/m^2): 1.2 MV E max benjamin: 70.5 cm/sec PA V2 max: 120.0 cm/sec MV A max benjamin: 68.2 cm/sec PA V2 mean: 77.5 cm/sec MV E/A: 1.0 PA mean P.8 mmHg Med Peak E' Benjamin: 7.7 cm/sec PA pr(Accel): 31.9 mmHg E/E' med: 9.1 Lat Peak E' Benjamin: 7.6 cm/sec E/E' lat: 9.3 E/e' average: 9.2 MV dec time: 0.20 sec SV(LVOT): 63.2 ml Reading Physician:05:33 PM
== END ==
PROVIDERS: PCP Family Medicine; Referring Provider Family Medicine; Visit Provider Family Medicine
DX: I48.91 Unspecified atrial fibrillation (principal); I10 Essential (primary) hypertension
CPT/HCPCS: 93306

== ENCOUNTER → 2025-04-20 10:58 | Outpatient (CLI) | payer MEDICARE, OTHER, SELFPAY ==
[2025-04-20 18:52] LABS: Add Manual Diff / Slide Review NO; Hematocrit 39.0 % (41-53); Hemoglobin 13.1 g/dL (13.5-17.5); Lymphocytes Absolute Auto 2200 /uL (1100-4500); Mean Corpuscular HGB Conc 33.5 % (30-36); Mean Corpuscular Hemoglobin 29.4 PG (26-34); Mean Corpuscular Volume 87.8 fL (80-100); Platelet Count 229 X10^3/uL (150-400)
[2025-04-20 19:03] LABS: Alanine Aminotransferase 21 IU/L (<50); Albumin 4.5 g/dL (3.5-5.0); Albumin Globulin Ratio 1.4 (1.0-2.8); Alkaline Phosphatase 107 U/L (38-126); Blood Urea Nitrogen 18 mg/dL (9-20); Calcium 9.3 mg/dL (8.4-10.2); Carbon Dioxide 28 mmol/L (22-32); Chloride 103 mmol/L (98-107); Cholesterol 127 mg/dL (140-199); Estimated Glomerular Filt Rate > 60 mL/min (>60); Globulin 3.2 g/dL (1.7-4.1); Glucose 130 mg/dL (70-99); HDL Cholesterol 47 mg/dL (40-60); HEMOLYSIS < 15 (0-50); Hemoglobin A1C% w Est Avg Glu 7.1 % (4.0-6.0); Potassium 4.7 mmol/L (3.4-5.1); Sodium 140 mmol/L (137-145); Total Protein 7.7 g/dL (6.3-8.2); Triglycerides 87 mg/dL (35-150)
[2025-04-20 19:16] LABS: Microalbumi Creatinin Ratio Ur 96.0 ug/mg CR (<30)
== END ==
PROVIDERS: PCP Family Medicine; Visit Provider Family Medicine
DX: E11.9 Type 2 diabetes mellitus without complications (principal); I10 Essential (primary) hypertension; E78.2 Mixed hyperlipidemia
CPT/HCPCS: 80053; 80061; 82043; 82570; 83036; 85025